=== PATIENT | male | born 1965 | race Caucasian/White ===

== ENCOUNTER 2020-01-26 17:59 | Inpatient (IN) | payer MEDICAID, OTHER ==
[~2020-01-26] VITALS: Ht 172.7 cm; Wt 78.0 kg
[2020-01-26] MEDS ORDERED: AZITHROMYCIN 500 MG in DEXT 5% WATER 250 ML IV ONE (19:00)
[2020-01-26] MEDS ORDERED: SODIUM CHLORIDE 0.9% 1000ML BAG (SEPSIS BOLUS) IV ONE (19:00)
[2020-01-26] MEDS ORDERED: CEFTRIAXONE 1 G PREMIX 50 ML IV ONE (19:00)
[2020-01-26 23:38] LABS: HEMATOCRIT. 45.1 % (42.0-52.0); HEMOGLOBIN. 15.9 g/dL (14.0-18.0); MEAN CORPUSCULAR VOLUME 88.2 fL (80.0-94.0); MEAN PLATELET VOLUME 7.5 fl (7.4-10.4); PLATELET 269 x1000/uL (130-400); RED BLOOD CELL COUNT 5.12 mill/uL (4.7-6.1); RED CELL DISTRIBUTION WIDTH 13.6 % (11.6-14.6)
[2020-01-26 23:45] LABS: CHLORIDE 103 mEq/L (98-107)
[2020-01-27 00:23] LABS: PLATELET ESTIMATE NORMAL
[2020-01-27] MEDS ORDERED: HYDROCODONE/ACETAMINOPHEN 5/325MG TABLET PO PRN (01:45)
[2020-01-27] MEDS ORDERED: ACETAMINOPHEN 325MG TABLET PO PRN (01:45)
[2020-01-27] MEDS ORDERED: ONDANSETRON HCL 4MG/2ML INJ IV PRN (01:45)
[2020-01-27] MEDS ORDERED: DOCUSATE SODIUM 100MG CAPSULE PO PRN (01:45)
[2020-01-27] MEDS ORDERED: CLONIDINE 0.1MG TABLET PO PRN (01:45)
[2020-01-27] MEDS ORDERED: MAGNESIUM/ALUMINUM HYDROXIDE/SIMETHICONE 30ML UDC PO PRN (01:45)
[2020-01-27] MEDS ORDERED: GUAIFENESIN 200MG/10ML SUGAR FREE UDC PO PRN (01:45)
[2020-01-27] MEDS: AMLODIPINE 10MG TABLET PO SCH (09:15)
[2020-01-27] MEDS: ENOXAPARIN 80MG/0.8ML SYR SUBCUT SCH ×2 (09:15→18:00)
[2020-01-27] MEDS ORDERED: CEFTRIAXONE 1 G PREMIX 50 ML IV SCH (21:00)
[2020-01-27] MEDS ORDERED: AZITHROMYCIN 500 MG in DEXT 5% WATER 250 ML IV SCH (22:00)
[2020-01-28 06:18] LABS: HEMATOCRIT. 43.4 % (42.0-52.0); HEMOGLOBIN. 14.9 g/dL (14.0-18.0); MEAN CORPUSCULAR HEMOGLOBIN 30.4 pg (28.0-32.0); MEAN CORPUSCULAR VOLUME 88.4 fL (80.0-94.0); PLATELET 325 x1000/uL (130-400); RED BLOOD CELL COUNT 4.91 mill/uL (4.7-6.1); RED CELL DISTRIBUTION WIDTH 13.6 % (11.6-14.6)
[2020-01-28 06:25] LABS: CHLORIDE 104 mEq/L (98-107)
[2020-01-28] MEDS: ENOXAPARIN 80MG/0.8ML SYR SUBCUT SCH ×2 (06:35→18:34)
[2020-01-28 09:41] LABS: BG BASE EXCESS 1.4 mmol/L (-2.0-2.0); BG CARBOXYHEMOGLOBIN 0.5 % (0.5-1.5); BG DEOXYHEMOGLOBIN 12.8 % (0.0-5.0); BG HCO3 ACT 23.9 mmol/L (22.0-26.0); BG OXYGEN SATURATION 87.1 % (92.0-98.5); BG OXYHEMOGLOBIN 86.7 % (94.0-97.0); BG PH 7.491 (7.350-7.450); BG PO2 49.4 mmHg (75.0-100.0); BG SAMPLE SITE RIGHT RADIAL; BG TOTAL HEMOGLOBIN 14.8 g/dL (12.0-18.0); BG VENT MODE MASK - NRB
[2020-01-28] MEDS: DEXAMETHASONE 10 MG/ML VIAL IV SCH (09:46)
[2020-01-28] MEDS: AMLODIPINE 10MG TABLET PO SCH (09:47)
[2020-01-28 10:27] LABS: PLATELET ESTIMATE NORMAL
[2020-01-28 12:47] VITALS: BP 134/71
[2020-01-28 14:12] LABS: INR 1.2; PROTHROMBIN TIME 12.4 sec (9.6-11.0)
[2020-01-28] MEDS ORDERED: DEXTROSE 50% WATER 50ML SYRINGE IV PRN (14:30)
[2020-01-28 16:00] VITALS: BP 115/68
[2020-01-28] MEDS: BLOOD SUGAR DIAGNOSTIC STRIP TEST SCH ×2 (16:40→21:00)
[2020-01-28 17:55] LABS: CLARITY URINE CLEAR (CLEAR); COLOR URINE DARK YELLOW (YELLOW); KETONES URINE 1+ (NEGATIVE); LEUKOCYTE ESTERASE URINE TRACE (NEGATIVE); NITRITE URINE NEGATIVE (NEGATIVE); OCCULT BLOOD URINE NEGATIVE (NEGATIVE); PROTEIN URINE 2+ (NEGATIVE)
[2020-01-28] MEDS: INSULIN LISPRO 100 UNITS/ML SUBCUT SCH ×2 (18:29→23:15)
[2020-01-28] MEDS ORDERED: PNEUMOCOCCAL 23-VAL P-SAC VAC 0.5 ML IM ONE (18:45)
[2020-01-28] MEDS ORDERED: INFLUENZA VACCINE 05/PF 0.5 ML VIAL IM ONE (18:45)
[2020-01-28 20:00] VITALS: BP 117/75
[2020-01-28] MEDS: CEFTRIAXONE 1,000 MG in DEXTROSE 5% WATER 50 ML IV SCH (21:54)
[2020-01-28] MEDS: AZITHROMYCIN 500 MG in DEXT 5% WATER 250 ML IV SCH (23:21)
[2020-01-29] VITALS: BP 102/64
[2020-01-29 04:00] VITALS: BP 103/65
[2020-01-29] MEDS: ENOXAPARIN 80MG/0.8ML SYR SUBCUT SCH ×2 (06:38→18:00)
[2020-01-29] MEDS: INSULIN LISPRO 100 UNITS/ML SUBCUT SCH ×4 (07:10→21:14)
[2020-01-29] MEDS: BLOOD SUGAR DIAGNOSTIC STRIP TEST SCH ×4 (07:33→21:09)
[2020-01-29 08:00] VITALS: BP 108/66
[2020-01-29] MEDS: AMLODIPINE 10MG TABLET PO SCH (09:00)
[2020-01-29] MEDS: DEXAMETHASONE 10 MG/ML VIAL IV SCH (09:02)
[2020-01-29 09:15] LABS: BG BASE EXCESS 0.6 mmol/L (-2.0-2.0); BG CARBOXYHEMOGLOBIN 0.5 % (0.5-1.5); BG DEOXYHEMOGLOBIN 9.7 % (0.0-5.0); BG FRACTION INSPIRED OXYGEN 100; BG HCO3 ACT 22.6 mmol/L (22.0-26.0); BG METHEMOGLOBIN 0.3 % (0.0-1.5); BG OXYGEN SATURATION 90.2 % (92.0-98.5); BG OXYHEMOGLOBIN 89.5 % (94.0-97.0); BG PCO2 29.6 mmHg (35.0-45.0); BG PH 7.501 (7.350-7.450); BG PO2 56.7 mmHg (75.0-100.0); BG SAMPLE SITE RIGHT RADIAL; BG TOTAL HEMOGLOBIN 14.8 g/dL (12.0-18.0); BG VENT MODE MASK - NRB
[2020-01-29 12:00] VITALS: BP 107/73
[2020-01-29 16:00] VITALS: BP 128/79
[2020-01-29 20:00] VITALS: BP 126/74
[2020-01-29] MEDS: CEFTRIAXONE 1,000 MG in DEXTROSE 5% WATER 50 ML IV SCH (21:14)
[2020-01-29] MEDS: AZITHROMYCIN 500 MG in DEXT 5% WATER 250 ML IV SCH (21:14)
[2020-01-30] VITALS: BP 121/72
[2020-01-30] MEDS: BLOOD SUGAR DIAGNOSTIC STRIP TEST SCH ×4 (06:54→21:00)
[2020-01-30] MEDS: INSULIN LISPRO 100 UNITS/ML SUBCUT SCH ×4 (07:10→21:00)
[2020-01-30 08:00] VITALS: BP 124/83
[2020-01-30] MEDS: AMLODIPINE 10MG TABLET PO SCH (09:00)
[2020-01-30] MEDS ORDERED: ZOLPIDEM TARTRATE 5MG TABLET PO PRN (09:30)
[2020-01-30] MEDS: DEXAMETHASONE 10 MG/ML VIAL IV SCH (09:45)
[2020-01-30] MEDS: ENOXAPARIN 80MG/0.8ML SYR SUBCUT SCH ×2 (09:45→18:08)
[2020-01-30 12:00] VITALS: BP 126/81
[2020-01-30 16:00] VITALS: BP 119/78
[2020-01-30 20:00] VITALS: BP 119/60
[2020-01-30] MEDS: AZITHROMYCIN 250 MG TABLET PO SCH (21:22)
[2020-01-30] MEDS: CEFTRIAXONE 1,000 MG in DEXTROSE 5% WATER 50 ML IV SCH (21:22)
[2020-01-31] VITALS: BP 123/66
[2020-01-31 04:00] VITALS: BP 113/72
[2020-01-31] MEDS: ENOXAPARIN 80MG/0.8ML SYR SUBCUT SCH ×2 (05:25→18:25)
[2020-01-31] MEDS: BLOOD SUGAR DIAGNOSTIC STRIP TEST SCH ×4 (05:25→21:00)
[2020-01-31 07:54] LABS: HEMATOCRIT. 42.7 % (42.0-52.0); HEMOGLOBIN. 14.7 g/dL (14.0-18.0); MEAN CORPUSCULAR HEMOGLOBIN 30.3 pg (28.0-32.0); MEAN CORPUSCULAR VOLUME 88.2 fL (80.0-94.0); MEAN PLATELET VOLUME 7.6 fl (7.4-10.4); PLATELET 391 x1000/uL (130-400); RED BLOOD CELL COUNT 4.84 mill/uL (4.7-6.1); RED CELL DISTRIBUTION WIDTH 13.2 % (11.6-14.6)
[2020-01-31 08:00] VITALS: BP 119/75
[2020-01-31 08:15] LABS: CHLORIDE 103 mEq/L (98-107)
[2020-01-31] MEDS: DEXAMETHASONE 10 MG/ML VIAL IV SCH (09:02)
[2020-01-31] MEDS: AMLODIPINE 10MG TABLET PO SCH (09:03)
[2020-01-31] MEDS: INSULIN LISPRO 100 UNITS/ML SUBCUT SCH ×4 (09:04→21:00)
[2020-01-31 09:20] LABS: BG BASE EXCESS 1.6 mmol/L (-2.0-2.0); BG CARBOXYHEMOGLOBIN 0.2 % (0.5-1.5); BG DEOXYHEMOGLOBIN 1.1 % (0.0-5.0); BG FRACTION INSPIRED OXYGEN 100; BG HCO3 ACT 23.6 mmol/L (22.0-26.0); BG METHEMOGLOBIN 0.3 % (0.0-1.5); BG OXYGEN SATURATION 98.9 % (92.0-98.5); BG OXYHEMOGLOBIN 98.4 % (94.0-97.0); BG PCO2 30.3 mmHg (35.0-45.0); BG PO2 181.7 mmHg (75.0-100.0); BG SAMPLE SITE RIGHT RADIAL; BG TOTAL HEMOGLOBIN 14.7 g/dL (12.0-18.0); BG TOTAL RESPIRATORY RATE 32 b/min; BG VENT MODE MASK - BIPAP
[2020-01-31 12:00] VITALS: BP 111/73
[2020-01-31 13:59] LABS: PLATELET ESTIMATE NORMAL
[2020-01-31 15:42] VITALS: BP 118/81
[2020-01-31 20:00] VITALS: BP 121/74
[2020-01-31] MEDS: AZITHROMYCIN 250 MG TABLET PO SCH (21:00)
[2020-01-31] MEDS: CEFTRIAXONE 1,000 MG in DEXTROSE 5% WATER 50 ML IV SCH (21:00)
[2020-02-01] VITALS (7 sets, daily range): BP systolic 105–128; BP diastolic 69–82
[2020-02-01] MEDS: BLOOD SUGAR DIAGNOSTIC STRIP TEST SCH ×4 (06:48→21:00)
[2020-02-01] MEDS: ENOXAPARIN 80MG/0.8ML SYR SUBCUT SCH ×2 (06:48→17:09)
[2020-02-01] MEDS: INSULIN LISPRO 100 UNITS/ML SUBCUT SCH ×4 (06:48→21:00)
[2020-02-01] MEDS: DEXAMETHASONE 10 MG/ML VIAL IV SCH (08:53)
[2020-02-01] MEDS: AMLODIPINE 10MG TABLET PO SCH (08:54)
[2020-02-02] VITALS: BP 115/76
[2020-02-02 04:00] VITALS: BP 124/60
[2020-02-02] MEDS: BLOOD SUGAR DIAGNOSTIC STRIP TEST SCH ×4 (06:27→21:47)
[2020-02-02] MEDS: ENOXAPARIN 80MG/0.8ML SYR SUBCUT SCH ×2 (06:27→18:03)
[2020-02-02 06:34] LABS: HEMATOCRIT. 47.7 % (42.0-52.0); HEMOGLOBIN. 16.2 g/dL (14.0-18.0); MEAN CORPUSCULAR HEMOGLOBIN 29.9 pg (28.0-32.0); MEAN CORPUSCULAR VOLUME 88.1 fL (80.0-94.0); PLATELET 376 x1000/uL (130-400); RED BLOOD CELL COUNT 5.42 mill/uL (4.7-6.1); RED CELL DISTRIBUTION WIDTH 13.1 % (11.6-14.6)
[2020-02-02 07:06] LABS: CHLORIDE 98 mEq/L (98-107)
[2020-02-02] MEDS: INSULIN LISPRO 100 UNITS/ML SUBCUT SCH ×4 (07:10→21:51)
[2020-02-02 08:00] VITALS: BP 118/66
[2020-02-02 08:05] LABS: BG BASE EXCESS 0.7 mmol/L (-2.0-2.0); BG CARBOXYHEMOGLOBIN 0.8 % (0.5-1.5); BG FRACTION INSPIRED OXYGEN 100; BG HCO3 ACT 22.3 mmol/L (22.0-26.0); BG METHEMOGLOBIN 0.3 % (0.0-1.5); BG OXYHEMOGLOBIN 96.9 % (94.0-97.0); BG PCO2 28.7 mmHg (35.0-45.0); BG PH 7.509 (7.350-7.450); BG PO2 104.7 mmHg (75.0-100.0); BG SAMPLE SITE RIGHT RADIAL; BG TOTAL HEMOGLOBIN 16.5 g/dL (12.0-18.0); BG VENT MODE MASK - NRB
[2020-02-02] MEDS: AMLODIPINE 10MG TABLET PO SCH (09:10)
[2020-02-02] MEDS: DEXAMETHASONE 10 MG/ML VIAL IV SCH (09:42)
[2020-02-02 10:57] LABS: PLATELET ESTIMATE NORMAL
[2020-02-02 12:00] VITALS: BP 116/70
[2020-02-02 16:00] VITALS: BP 121/71
[2020-02-02 20:00] VITALS: BP 100/68
[2020-02-03] VITALS: BP 109/73
[2020-02-03 04:00] VITALS: BP 100/70
[2020-02-03] MEDS: ENOXAPARIN 80MG/0.8ML SYR SUBCUT SCH ×2 (05:19→18:17)
[2020-02-03] MEDS: BLOOD SUGAR DIAGNOSTIC STRIP TEST SCH ×4 (06:40→21:45)
[2020-02-03] MEDS: INSULIN LISPRO 100 UNITS/ML SUBCUT SCH ×4 (07:10→21:48)
[2020-02-03 08:00] VITALS: BP 107/69
[2020-02-03] MEDS: AMLODIPINE 10MG TABLET PO SCH (09:04)
[2020-02-03] MEDS: DEXAMETHASONE 10 MG/ML VIAL IV SCH (10:44)
[2020-02-03 12:00] VITALS: BP 111/72
[2020-02-03 16:00] VITALS: BP 109/75
[2020-02-03 20:50] VITALS: BP 108/70
[2020-02-04 00:40] VITALS: BP 95/60
[2020-02-04 04:00] VITALS: BP 101/65
[2020-02-04] MEDS: BLOOD SUGAR DIAGNOSTIC STRIP TEST SCH ×4 (06:42→21:04)
[2020-02-04] MEDS: ENOXAPARIN 80MG/0.8ML SYR SUBCUT SCH ×2 (06:43→17:21)
[2020-02-04] MEDS: INSULIN LISPRO 100 UNITS/ML SUBCUT SCH ×4 (06:48→21:09)
[2020-02-04 08:00] VITALS: BP 115/73
[2020-02-04] MEDS: DEXAMETHASONE 10 MG/ML VIAL IV SCH (08:51)
[2020-02-04] MEDS: AMLODIPINE 10MG TABLET PO SCH (08:55)
[2020-02-04 12:00] VITALS: BP 100/80
[2020-02-04 13:48] LABS: BG BASE EXCESS -0.8 mmol/L (-2.0-2.0); BG CARBOXYHEMOGLOBIN 1.4 % (0.5-1.5); BG DEOXYHEMOGLOBIN 9.7 % (0.0-5.0); BG FRACTION INSPIRED OXYGEN 21; BG HCO3 ACT 21.2 mmol/L (22.0-26.0); BG METHEMOGLOBIN 0.1 % (0.0-1.5); BG OXYGEN SATURATION 90.2 % (92.0-98.5); BG OXYHEMOGLOBIN 88.8 % (94.0-97.0); BG PCO2 29.2 mmHg (35.0-45.0); BG PH 7.479 (7.350-7.450); BG PO2 57.8 mmHg (75.0-100.0); BG SAMPLE SITE RIGHT RADIAL; BG TOTAL HEMOGLOBIN 16.8 g/dL (12.0-18.0); BG VENT MODE ROOM AIR
[2020-02-04 16:00] VITALS: BP 112/76
[2020-02-04 20:00] VITALS: BP 110/76
[2020-02-05] VITALS: BP 102/70
[2020-02-05 04:00] VITALS: BP 101/70
[2020-02-05] MEDS: ENOXAPARIN 80MG/0.8ML SYR SUBCUT SCH (05:48)
[2020-02-05] MEDS: BLOOD SUGAR DIAGNOSTIC STRIP TEST SCH (05:57)
[2020-02-05] MEDS: INSULIN LISPRO 100 UNITS/ML SUBCUT SCH (05:58)
[2020-02-05 08:00] VITALS: BP 102/66
[2020-02-05] MEDS: DEXAMETHASONE 10 MG/ML VIAL IV SCH (09:04)
[2020-02-05] MEDS: AMLODIPINE 10MG TABLET PO SCH (09:05)
[2020-02-05 10:01] VITALS: BP 102/66
[2020-02-05 12:00] VITALS: BP 112/75
[2020-02-05] MEDS ORDERED: ALBU18HF2 IH (12:29)
== END 2020-02-05 13:44 | disposition home or self-care (01) | DRG 720 ==
LOC: ER 17:59 → MICUSO 01-27 01:05 → 7EST 01-28 10:30
PROVIDERS: ADMIT Internal Medicine; ATTEND Internal Medicine
PROC: 5A09457 Assistance with Respiratory Ventilation, 24-96 Consecutive Hours, Continuous Positive Airway Pressure (ICD-10-PCS; principal; 2020-01-30)
DX: A41.89 Other specified sepsis (principal); U07.1 COVID-19; J12.89 Other viral pneumonia; J96.01 Acute respiratory failure with hypoxia; E43 Unspecified severe protein-calorie malnutrition; I10 Essential (primary) hypertension; R65.20 Severe sepsis without septic shock; E11.65 Type 2 diabetes mellitus with hyperglycemia; E87.1 Hypo-osmolality and hyponatremia; D68.59 Other primary thrombophilia; E87.2 Acidosis; R74.01 Elevation of levels of liver transaminase levels; Z68.26 Body mass index [BMI] 26.0-26.9, adult
CPT/HCPCS: 36415; 36600; 71045; 80048; 80053; 81003; 82375; 82728; 82805; 82962; 83036; 83605; 83615; 85025; 85379; 86140; 87635; 93005; 96365; 96366; 96368; 96372; 99285; J0456; J0696; J1100; J1650; J1815; J7060; A4315